=== PATIENT | male | born 1995 | race Caucasian/White ===

== ENCOUNTER 2019-07-04 15:54 | Emergency (ER) | payer BC ==
[~2019-07-04] VITALS: Ht 175.3 cm; Wt 79.1 kg
[~2019-07-04 15:54] MED LIST: BACI28.34 TOP
[2019-07-04 16:02] VITALS: Ht 175.3 cm; Wt 79.1 kg
[2019-07-04] MEDS ORDERED: DIPHTH/TET/ACEL PERTUSS (ADULT) 0.5 ML VIAL IM* ONE (17:00)
[2019-07-04] MEDS ORDERED: IBUPROFEN 600 MG TAB PO ONE (17:00)
[2019-07-04 18:14] VITALS: BP 119/74; PULSE 64; RESP 18
== END 2019-07-04 18:15 | disposition home or self-care (01) ==
LOC: FTE 15:54
DX: S61.213A Laceration without foreign body of left middle finger without damage to nail, initial encounter (principal); W31.2XXA Contact with powered woodworking and forming machines, initial encounter; Y92.9 Unspecified place or not applicable; Z23 Encounter for immunization
CPT/HCPCS: 90471; 90715